=== PATIENT | male | born 1955 | race Caucasian/White ===

== ENCOUNTER → 2016-11-14 | Outpatient (CLI) | payer OTHER ==
[~2016-11-14] MED LIST: ALBU17IN INH; CIPR-303 PO; LISI-542 PO; PERC5TAB6 PO; STOO100C PO; TYLE325T5 PO
== END ==
LOC: M SMT 08:51
PROVIDERS: ATTEND Urology
DX: C61 Malignant neoplasm of prostate (principal)

== ENCOUNTER → 2016-11-14 | Outpatient (CLI) | payer OTHER ==
[2016-11-14 13:39] LABS: MEAN CORPUSCULAR HEMOGLOBIN 32.7 pg (27.0-33.0); MEAN CORPUSCULAR HGB CONC 32.9 g/dl (32.0-36.5); MEAN CORPUSCULAR VOLUME 99.2 fl (80.0-96.0); RED CELL DISTRIBUTION WIDTH 13.6 % (11.5-14.5); WHITE BLOOD COUNT 6.1 K/mm3 (4.0-10.0)
[2016-11-14 14:08] LABS: ALBUMIN 3.7 GM/DL (3.2-5.2); ALBUMIN/GLOBULIN RATIO 1.23 (1.00-1.93); ALKALINE PHOSPHATASE 122 U/L (45-117); ALT/SGPT 26 U/L (12-78); ANION GAP 7 MEQ/L (8-16); AST/SGOT 20 U/L (15-37); BILIRUBIN,TOTAL 0.3 MG/DL (0.2-1.0); BLOOD UREA NITROGEN 14 MG/DL (7-18); CALCIUM LEVEL 9.2 MG/DL (8.8-10.2); CARBON DIOXIDE LEVEL 29 MEQ/L (21-32); CHLORIDE LEVEL 101 MEQ/L (98-107); CHOLESTEROL LEVEL 228 MG/DL (<200); CREATININE FOR GFR 0.92 MG/DL (0.70-1.30); GLOMERULAR FILTRATION RATE > 60.0 (>49); GLUCOSE, FASTING 153 MG/DL (80-110); POTASSIUM SERUM 4.7 MEQ/L (3.5-5.1); SODIUM LEVEL 137 MEQ/L (136-145); TOTAL PROTEIN 6.7 GM/DL (6.4-8.2); TRIGLYCERIDES LEVEL 90 MG/DL (<150)
== END ==
LOC: M SMT 08:25
PROVIDERS: ATTEND Physician Assistant
DX: F17.200 Nicotine dependence, unspecified, uncomplicated (principal); I10 Essential (primary) hypertension; E78.2 Mixed hyperlipidemia

== ENCOUNTER → 2017-01-25 | Outpatient (CLI) | payer OTHER | LOC: M RAD 09:33 | PROVIDERS: ATTEND Physician Assistant | DX: I73.9 Peripheral vascular disease, unspecified (principal) ==

== ENCOUNTER → 2017-02-27 | Outpatient (CLI) | payer OTHER | LOC: M SMT 08:08 | PROVIDERS: ATTEND Urology | DX: C61 Malignant neoplasm of prostate (principal) ==

== ENCOUNTER → 2017-03-10 | Outpatient (REF) | payer OTHER ==
[2017-03-10 16:09] LABS: MEAN CORPUSCULAR HEMOGLOBIN 33.7 pg (27.0-33.0); MEAN CORPUSCULAR HGB CONC 33.7 g/dl (32.0-36.5); MEAN CORPUSCULAR VOLUME 100.2 fl (80.0-96.0); RED CELL DISTRIBUTION WIDTH 12.5 % (11.5-14.5); WHITE BLOOD COUNT 5.6 K/mm3 (4.0-10.0)
[2017-03-10 16:19] LABS: ALBUMIN 3.9 GM/DL (3.2-5.2); ALBUMIN/GLOBULIN RATIO 1.15 (1.00-1.93); ALKALINE PHOSPHATASE 114 U/L (45-117); ALT/SGPT 28 U/L (12-78); ANION GAP 8 MEQ/L (8-16); AST/SGOT 20 U/L (15-37); BILIRUBIN,TOTAL 0.6 MG/DL (0.2-1.0); BLOOD UREA NITROGEN 18 MG/DL (7-18); CALCIUM LEVEL 9.5 MG/DL (8.8-10.2); CARBON DIOXIDE LEVEL 28 MEQ/L (21-32); CHLORIDE LEVEL 99 MEQ/L (98-107); CHOLESTEROL LEVEL 294 MG/DL (<200); CREATININE FOR GFR 1.13 MG/DL (0.70-1.30); GLOMERULAR FILTRATION RATE > 60.0 (>49); GLUCOSE, FASTING 183 MG/DL (80-110); POTASSIUM SERUM 4.9 MEQ/L (3.5-5.1); SODIUM LEVEL 135 MEQ/L (136-145); TOTAL PROTEIN 7.3 GM/DL (6.4-8.2); TRIGLYCERIDES LEVEL 105 MG/DL (<150)
== END ==
LOC: M SFHCLACO 15:34
PROVIDERS: ATTEND Physician Assistant
DX: J44.9 Chronic obstructive pulmonary disease, unspecified (principal); E11.9 Type 2 diabetes mellitus without complications

== ENCOUNTER → 2017-05-29 | Outpatient (CLI) | payer OTHER ==
[~2017-05-29] MED LIST changes: +PERC5TAB12 PO; -PERC5TAB6 PO
== END ==
LOC: M SMT 08:09
PROVIDERS: ATTEND Urology
DX: C61 Malignant neoplasm of prostate (principal)

== ENCOUNTER → 2019-01-08 | Outpatient (REF) | payer OTHER, SELFPAY ==
[2019-01-08 12:33] LABS: HEMATOCRIT 39.1 % (42.0-52.0); HEMOGLOBIN 13.2 g/dl (13.5-17.5); MEAN CORPUSCULAR HEMOGLOBIN 33.6 pg (27.0-33.0); MEAN CORPUSCULAR HGB CONC 33.8 g/dl (32.0-36.5); MEAN CORPUSCULAR VOLUME 99.5 fl (80.0-96.0); PLATELET COUNT, AUTOMATED 344 10^3/uL (150-450); RED BLOOD COUNT 3.93 10^6/uL (4.30-6.10); WHITE BLOOD COUNT 5.5 10^3/uL (4.0-10.0)
[2019-01-08 12:46] LABS: ALBUMIN 3.3 GM/DL (3.2-5.2); ALT/SGPT 19 U/L (12-78); BILIRUBIN,TOTAL 0.4 MG/DL (0.2-1.0); BLOOD UREA NITROGEN 14 MG/DL (7-18); CALCIUM LEVEL 8.9 MG/DL (8.8-10.2); CARBON DIOXIDE LEVEL 28 MEQ/L (21-32); CHLORIDE LEVEL 105 MEQ/L (98-107); GLOMERULAR FILTRATION RATE > 60.0 (>49); GLUCOSE, FASTING 301 MG/DL (70-100); POTASSIUM SERUM 4.9 MEQ/L (3.5-5.1); SODIUM LEVEL 139 MEQ/L (136-145); TOTAL PROTEIN 6.1 GM/DL (6.4-8.2)
[2019-01-08 14:56] LABS: HEMOGLOBIN A1c 8.3 %
== END ==
LOC: M SFHCADAM 08:39
PROVIDERS: ATTEND Family Medicine
DX: J44.9 Chronic obstructive pulmonary disease, unspecified (principal); E11.9 Type 2 diabetes mellitus without complications

== ENCOUNTER → 2019-10-11 | Outpatient (CLI) | payer MEDICARE ==
[~2019-10-11] MED LIST changes: +MM S100C PO; -STOO100C PO
--- NOTE | 2019-10-12 08:07 | REP ---
CAROTID ULTRASOUND: Real-time sonographic evaluation and duplex Doppler interrogation of the extracranial carotid vasculature performed. Moderate partially calcified plaquing is seen bilaterally in the carotid bulbs extending into the internal and external carotid arteries. Elevated peak systolic velocity is seen in the proximal right common carotid artery at 192 cm/s which could indicate a more proximal stenosis. There is no duplex Doppler sonographic evidence of hemodynamically significant stenosis in the internal carotid arteries. There is normal direction of flow in both vertebral arteries, although only minimal flow is seen in the right vertebral artery. RIGHT LEFT PSV ICA 119 cm/s 111 cm/s EDV ICA 36 cm/s 33 cm/s PSV CCA 192 cm/s 127 cm/s PSV ECA 126 cm/s 99 cm/s ICA/CCA ratio 0.62 0.87 IMPRESSION: Moderate plaquing and narrowing bilaterally in the carotid bulbs and internal carotid arteries. Elevated peak systolic velocity in the right common carotid artery may indicate a more proximal stenosis of that vessel. There is no evidence of significant stenosis of either internal carotid artery. Electronically Signed by Raulito Lomas MD 10/14/2019 04:17 P
== END ==
LOC: M RAD 14:06
PROVIDERS: ATTEND Family Medicine
DX: R09.89 Other specified symptoms and signs involving the circulatory and respiratory systems (principal); E11.9 Type 2 diabetes mellitus without complications

== ENCOUNTER → 2019-10-11 | Outpatient (CLI) | payer MEDICARE ==
[2019-10-11 15:46] LABS: HEMOGLOBIN A1c 8.8 %
[2019-10-11 15:55] LABS: ALBUMIN 3.4 GM/DL (3.2-5.2); ALT/SGPT 24 U/L (12-78); BILIRUBIN,TOTAL 0.5 MG/DL (0.2-1.0); BLOOD UREA NITROGEN 20 MG/DL (7-18); CALCIUM LEVEL 8.8 MG/DL (8.8-10.2); CARBON DIOXIDE LEVEL 29 MEQ/L (21-32); CHLORIDE LEVEL 105 MEQ/L (98-107); CHOLESTEROL LEVEL 216 MG/DL (<200); GLOMERULAR FILTRATION RATE > 60.0 (>49); GLUCOSE, FASTING 172 MG/DL (70-100); HDL CHOLESTEROL 72 MG/DL (>40); LDL CHOLESTEROL 87 MG/DL (<100); NON-HDL-C 144 MG/DL; POTASSIUM SERUM 4.7 MEQ/L (3.5-5.1); SODIUM LEVEL 139 MEQ/L (136-145); TOTAL PROTEIN 6.3 GM/DL (6.4-8.2); TRIGLYCERIDES LEVEL 284 MG/DL (<150)
== END ==
LOC: M LAB 14:55
PROVIDERS: ATTEND Family Medicine
DX: E11.9 Type 2 diabetes mellitus without complications (principal)

== ENCOUNTER → 2019-10-31 | Outpatient (REF) | payer MEDICARE ==
[2019-10-31 14:47] LABS: CREATININE, URINE 97.3 MG/DL; MALB URINE SIEMENS 15.5 MG/L; MAU/CREAT RATIO 15.9 MCG/MG (0.0-30.0)
== END ==
LOC: M SFHCADAM 09:20
PROVIDERS: ATTEND Family Medicine
DX: E11.9 Type 2 diabetes mellitus without complications (principal)
CPT/HCPCS: 82043; G0463

== ENCOUNTER → 2019-11-08 | Outpatient (CLI) | payer MEDICARE | LOC: M LAB 08:41 | PROVIDERS: ATTEND Nurse Practitioner Family | DX: C61 Malignant neoplasm of prostate (principal) ==

== ENCOUNTER → 2020-03-05 | Outpatient (REF) | payer MEDICARE ==
[~2020-03-05] MED LIST changes: +ASPI81TA26 PO; -LISI-542 PO; +LISI-898 PO; +METF10004 PO; +ROSU40TA4 PO
== END ==
LOC: M SFHCADAM 10:33
PROVIDERS: ATTEND Family Medicine
DX: E11.9 Type 2 diabetes mellitus without complications (principal)
CPT/HCPCS: 83036; G0463

== ENCOUNTER → 2020-04-09 | Outpatient (CLI) | payer MEDICARE ==
[~2020-04-09] MED LIST changes: -ASPI81TA26 PO; +LISI-542 PO; -LISI-898 PO; -METF10004 PO; -ROSU40TA4 PO
--- NOTE | 2020-04-10 04:58 | REP ---
Clinical: Symptoms related to atherosclerotic disease and intermittent claudication. Technique: Real time oglesby scale and color Doppler evaluation of the bilateral lower extremity arterial vasculature using linear high frequency transducer. Findings: Right lower extremity demonstrates significant partially calcified atheromatous plaquing including moderate stenosis to the common femoral artery and profunda artery. Decreased caliber to the proximal superficial femoral artery with slow flow to the level of occlusion at the mid superficial femoral artery extending to the popliteal artery with distal revascularization and downstream monophasic wave patterns. Left lower extremity demonstrates significant partially calcified atheromatous plaquing from the common femoral artery through the superficial femoral artery followed by moderate/significant stenosis at the popliteal artery. Left lower extremity demonstrates scattered triphasic and primarily biphasic wave patterns. Peak systolic velocities (cm/sec) RIGHT LEFT ADELE 0.47 0.93 Common femoral artery 142 197 Profunda femoris 257 209 SFA (proximal) 71 150 SFA (mid) occluded 124 SFA (distal) occluded 173 Popliteal artery occluded 84/226 MARY (prox.) 16 80 Tibioperoneal trunk 26 59 DIRECTOR OF PRODUCT MANAGEMENT (prox.) 59 74 DIRECTOR OF PRODUCT MANAGEMENT (distal) 39 74 MARY (distal) 26 86 Impression: Significant bilateral partially calcified atheromatous disease with areas of stenosis as described above and occlusion through the right superficial femoral artery. Electronically Signed by Lee Castillo MD 04/10/2020 04:51 A
== END ==
LOC: M RAD 14:04
PROVIDERS: ATTEND Physician Assistant
DX: I70.213 Atherosclerosis of native arteries of extremities with intermittent claudication, bilateral legs (principal); I77.1 Stricture of artery

== ENCOUNTER → 2020-05-05 | Outpatient (CLI) | payer MEDICARE ==
[~2020-05-05] MED LIST changes: +ASPI81TA26 PO; +ISOVUE-300 61% 50ML VIAL As Ordered ONE; +LIDOCAINE 1% MDV 20ML VIAL As Ordered ONE; +METF10004 PO; +MIDAZOLAM INJ 2MG/2ML VIAL (J2250 PER 1MG) As Ordered ONE; +ROSU40TA4 PO; +fentaNYL 100 MCG/2 ML INJECTION (J3010) As Ordered ONE
[2020-05-05 09:10] LABS: HEMATOCRIT 39.8 % (42.0-52.0); HEMOGLOBIN 13.4 g/dl (13.5-17.5); MEAN CORPUSCULAR HEMOGLOBIN 32.8 pg (27.0-33.0); MEAN CORPUSCULAR HGB CONC 33.7 g/dl (32.0-36.5); MEAN CORPUSCULAR VOLUME 97.3 fl (80.0-96.0); PLATELET COUNT, AUTOMATED 319 10^3/uL (150-450); RED BLOOD COUNT 4.09 10^6/uL (4.30-6.10); WHITE BLOOD COUNT 6.8 10^3/uL (4.0-10.0)
--- NOTE | 2020-05-05 10:41 | ROOPDOC ---
[facility] Report Of Operation Report of Operation DATE OF PROCEDURE: 05/05/20 PREPROCEDURE DIAGNOSES: Atherosclerosis of the lummi arteries with lifestyle limiting claudication right lower extremity POSTPROCEDURE DIAGNOSES: Same PROCEDURE: 1. Ultrasound-guided access left common femoral artery 2. Aortoiliofemoral arteriogram 3. Selection right common femoral artery and superficial femoral artery with right lower extremity runoff 4. Attempt to cross chronic total occlusion right superficial femoral artery, aborted 5. Completion arteriogram 6. Mynx closure left common femoral artery SURGEON: Nick Hunt MD ANESTHESIA: Local anesthesia 5 mL lidocaine. Moderate intravenous conscious sedation was supervised by Dr. Hunt. The patient was independently monitored by a registered nurse assigned to the Department of radiology using automated blood pressure, EKG, and pulse oximetry. The details sedation record is permanently stored in the hospital information system. The following is a brief sedation record: Start time 09:55, stop time 10:15, Versed 1 mg IV, fentanyl 50 g IV. CONTRAST: 20 mL Isovue-300 INDICATION FOR PROCEDURE: Mr. Smith is a very pleasant 64-year-old gentleman with atherosclerosis of the lummi arteries and right lower extremity lifestyle limiting short distance claudication. The patient's claudication has worsened over the past few weeks, and we discussed the options for an arteriogram with potential intervention. I suspect that the patient will need a right femoral to below-knee popliteal bypass based on his arterial ultrasound, but I would like to make sure he does not have any new arterial occlusions and make sure his below-knee popliteal artery is suitable for bypass prior to discussing surgery, and that he has in-line tibial outflow to support a bypass. Also, I discussed with the patient that despite him having a long occlusion of right the superficial femoral artery and proximal popliteal artery, we would still like to try to cross this with endovascular measures and possibly treat him with angioplasty and/or stenting. Risks benefits and alternatives to an arteriogram and potential intervention were explained to the patient needs agreeable to proceed. Informed consent was obtained. INTERPRETATION: 1. The aortoiliofemoral segments are mildly ectatic and calcified with plaque, but no flow-limiting stenoses are noted in the bilateral common iliac arteries, external iliac arteries, or hypogastric arteries. The distal aorta is also widely patent. 2. The right common femoral artery has some peripheral calcified plaque, but is widely patent with good flow into the profunda which provides majority of collaterals to the below-knee popliteal artery for reconstitution. The proximal SFA is patent, but is very diminutive in size with trickle flow that runs off through a large collateral through the thigh and around the knee to the below-kn ee popliteal artery. Below the knee, the patient has his main runoff through the posterior tibial and anterior tibial arteries which supply the flow to the distal foot. The peroneal artery is patent but diminutive and has limited flow compared to the other 2 vessels. 3. Attempts to cross the chronic total occlusion of the superficial femoral artery were aborted. Arteriograms during and after crossing confirmed that there was still good flow through the collateral to the below-knee aspect of the popliteal artery and no extravasation was noted. REPORT OF OPERATION: Patient was brought to the angiographic suite in stable condition and placed supine on the fluoroscopic table. His bilateral groins were prepped and draped in a sterile fashion. A timeout was performed. Sedation was administered without complication. Local anesthesia was administered to the skin and subcutaneous tissue over the left common femoral artery and a microneedle was used to access the artery under ultrasound guidance. A wire was passed thr ough this access and the needle was removed and a 4 Pakistani sheath was placed and flushed with saline. We then advanced a Glidewire and a flushing catheter into the distal aorta under fluoroscopic guidance. Aortoiliofemoral arteriograms were performed, please interpretation above. We then went up and over the bifurcation with a Glidewire and flushing catheter and selected the right common femoral artery and superficial femoral artery. Right lower extremity arteriograms and runoff were performed. We then attempted to cross through the chronic total occlusion in the right superficial femoral artery, but the Glidewire continued to select a large collateral vessel and would not stay within the true lumen to cross the occlusion. Despite our best efforts, we were unsuccessful at crossing this occlusion. We then exchange the sheath for a 5 Pakistani sheath and deployed a Mynx closure device in the left common femoral artery with good hemostasis. Pressure was held for 5 minutes and sterile dressings were applied. The patient was taken to recovery in stable condition. He tolerated the procedure and the sedation well. ESTIMATED BLOOD LOSS: Approximately 5 mL. COMPLICATIONS: None. PLAN: Okay for patient to resume home diet medications. We will see him back in a week to check his groin access site discuss options. I went over the results of the procedure with the patient today, and with his daughter, but we like to talk to him again in a week as he may not remember our conversation today due to sedation. What I spoke with the patient today, he indicated he would prefer to try a walking program before going ahead with the bypass surgery. Therefore, we will not order a saphenous vein mapping today. We can order this in the future if the patient decides he does want a femoral to below-knee popliteal bypass on the right. I think it's great that he like to try a walking program first. Since he quit smoking, his collateral circulation should get better with time with consistent exercise. We went over the details of a walking exercise program, and the patient is more than willing to try ambulation or other exercise for 30-60 minutes a day over the next 3 months. We will see him back at that time to discuss his progress and see if he feels better or if he would prefer to proceed with bypass. Based on imaging today, the patient does have a suitable below-knee popliteal artery for bypass and suitable in-line tibial outflow to support a bypass. The patient and his daughter are agreeable to this plan and all questions were answered. We appreciate the opportunity to participate in the care of this patient. NICK HUNT MD May 05, 2020 10:41
[2020-05-05 14:00] VITALS: BP 159/80
== END ==
LOC: M IRPRO 08:37
PROVIDERS: ATTEND Surgery Vascular Surgery
DX: I70.211 Atherosclerosis of native arteries of extremities with intermittent claudication, right leg (principal); I70.92 Chronic total occlusion of artery of the extremities; I65.23 Occlusion and stenosis of bilateral carotid arteries; E11.9 Type 2 diabetes mellitus without complications; F17.210 Nicotine dependence, cigarettes, uncomplicated; Z79.82 Long term (current) use of aspirin; Z79.84 Long term (current) use of oral hypoglycemic drugs; Z79.899 Other long term (current) drug therapy
CPT/HCPCS: 36247; 75710; 85027; 99152; C1760; C1769; C1887; C1894; G0269; J1644; J2250; J3010; Q9967

== ENCOUNTER → 2020-05-08 | Outpatient (REF) | payer MEDICARE ==
[~2020-05-08] MED LIST changes: -ISOVUE-300 61% 50ML VIAL As Ordered ONE; -LIDOCAINE 1% MDV 20ML VIAL As Ordered ONE; -MIDAZOLAM INJ 2MG/2ML VIAL (J2250 PER 1MG) As Ordered ONE; -fentaNYL 100 MCG/2 ML INJECTION (J3010) As Ordered ONE
== END ==
LOC: M SFHCADAM 10:48
PROVIDERS: ATTEND Nurse Practitioner Family
DX: C61 Malignant neoplasm of prostate (principal)

== ENCOUNTER → 2020-08-13 | Outpatient (CLI) | payer MEDICARE ==
--- NOTE | 2020-08-13 14:18 | REP ---
INDICATION: ART [place] ART OF EXT WITH IN DORCAS, SUSAN LEGS atherosclerosis. COMPARISON: Comparison study April 09, 2020.. TECHNIQUE: Bilateral lower extremity arterial Doppler ultrasound is performed. FINDINGS: Ankle brachial indices are measured 0.61 on the right and 1.07 on the left. Severe plaquing is seen in the arterial tree in the right leg and mild plaquing in the left leg. There is a mild, 1.5/1 velocity ratio stenosis in the right profunda origin. The right superficial femoral artery is occluded from its proximal segment. Monophasic waveforms are seen at and proximal to the proximal segment of the SFA on the right. On the left triphasic and biphasic waveforms are noted throughout the arterial tree. No high-grade stenosis is noted. Right lower extremity arterial Doppler velocity chart: Right DIET TECHNICIAN REGISTERED PSV 176/146 cm/S Profundal 217 Proximal SFA 110/occluded Mid SFA occluded Distal SFA occluded Popliteal revascularized 43 Proximal MARY 18/63 Tibial-peroneal trunk 24 Proximal AUTOMOTIVE QUALITY ENGINEER 44 Distal AUTOMOTIVE QUALITY ENGINEER 18 Distal MARY 16 Left lower extremity arterial Doppler velocity chart: Left DIET TECHNICIAN REGISTERED PSV 209/217 cm/S Profile in 181 Proximal SFA 177 Mid SFA 123 Distal SFA 100 Popliteal 93/68 Proximal MARY 106 Tibial-peroneal trunk 64 Proximal AUTOMOTIVE QUALITY ENGINEER 107 Distal AUTOMOTIVE QUALITY ENGINEER 67 Distal MARY 54 IMPRESSION: Extensive atherosclerotic plaquing on the right. Occlusion of the right SFA. <Electronically signed by Russell Otoole > 08/13/20 [id number]
== END ==
LOC: M RAD 12:44
PROVIDERS: ATTEND Physician Assistant
DX: I70.213 Atherosclerosis of native arteries of extremities with intermittent claudication, bilateral legs (principal)

== ENCOUNTER → 2020-09-30 | Outpatient (REF) | payer MEDICARE ==
[2020-09-30 13:37] LABS: HEMOGLOBIN A1c 7.9 %
== END ==
LOC: M SFHCADAM 08:49
PROVIDERS: ATTEND Family Medicine
DX: E11.9 Type 2 diabetes mellitus without complications (principal); Z23 Encounter for immunization
CPT/HCPCS: 83036; 90682; G0008; G0463

== ENCOUNTER → 2020-11-03 | Outpatient (CLI) | payer MEDICARE ==
[~2020-11-03] MED LIST changes: -LISI-542 PO; +LISI-898 PO
--- NOTE | 2020-11-03 08:45 | REP ---
INDICATION: CIGARETTE NICOTINE DEPENDENCE COMPARISON: None. TECHNIQUE: Axial noncontrast images from the thoracic inlet to the upper abdomen using low-dose lung screening technique (LDCT). FINDINGS: The bilateral lung bullock are well aerated and symmetric. No consolidation, suspicious nodule or mass lesion appreciated. No pleural effusion. No pneumothorax. Tracheobronchial tree is patent. Mediastinum demonstrates atherosclerotic changes to the thoracic aorta and coronary arteries without obvious cardiomegaly. IMPRESSION: Lung-RADS category 1. No suspicious nodules or mass lesions. Annual low-dose CT surveillance recommended. <Electronically signed by Lee Castillo > 11/03/20 [id number]
== END ==
LOC: M RAD 08:12
PROVIDERS: ATTEND Family Medicine
DX: Z12.2 Encounter for screening for malignant neoplasm of respiratory organs (principal); F17.218 Nicotine dependence, cigarettes, with other nicotine-induced disorders

== ENCOUNTER → 2020-11-04 | Outpatient (REF) | payer MEDICARE ==
[~2020-11-04] MED LIST changes: +LISI-542 PO; -LISI-898 PO
== END ==
LOC: M SFHCADAM 07:34
PROVIDERS: ATTEND Nurse Practitioner Family
DX: C61 Malignant neoplasm of prostate (principal)

== ENCOUNTER → 2021-01-08 | Outpatient (REF) | payer MEDICARE ==
[~2021-01-08] MED LIST changes: -LISI-542 PO; +LISI-898 PO
[2021-01-08 13:36] LABS: HEMOGLOBIN A1c 6.8 %
[2021-01-08 13:46] LABS: ALBUMIN 3.7 GM/DL (3.2-5.2); ALT/SGPT 23 U/L (12-78); BILIRUBIN,TOTAL 0.4 MG/DL (0.2-1.0); BLOOD UREA NITROGEN 17 MG/DL (7-18); CALCIUM LEVEL 9.1 MG/DL (8.8-10.2); CARBON DIOXIDE LEVEL 28 MEQ/L (21-32); CHLORIDE LEVEL 105 MEQ/L (98-107); CREATININE FOR GFR 0.95 MG/DL (0.70-1.30); GLOMERULAR FILTRATION RATE > 60.0 (>49); GLUCOSE, FASTING 156 MG/DL (70-100); POTASSIUM SERUM 4.8 MEQ/L (3.5-5.1); SODIUM LEVEL 136 MEQ/L (136-145); TOTAL PROTEIN 6.5 GM/DL (6.4-8.2)
== END ==
LOC: M SFHCADAM 08:50
PROVIDERS: ATTEND Family Medicine
DX: E11.9 Type 2 diabetes mellitus without complications (principal)

== ENCOUNTER → 2021-04-08 | Outpatient (REF) | payer MEDICARE ==
[2021-04-08 18:05] LABS: ALBUMIN 3.5 GM/DL (3.2-5.2); ALT/SGPT 20 U/L (12-78); AMYLASE 135 U/L (25-115); BILIRUBIN,TOTAL 0.3 MG/DL (0.2-1.0); BLOOD UREA NITROGEN 17 MG/DL (7-18); CALCIUM LEVEL 8.9 MG/DL (8.8-10.2); CARBON DIOXIDE LEVEL 28 MEQ/L (21-32); CHLORIDE LEVEL 101 MEQ/L (98-107); CREATININE FOR GFR 0.94 MG/DL (0.70-1.30); GLOMERULAR FILTRATION RATE > 60.0 (>49); GLUCOSE, FASTING 160 MG/DL (70-100); LIPASE 220 U/L (73-393); POTASSIUM SERUM 4.6 MEQ/L (3.5-5.1); SODIUM LEVEL 134 MEQ/L (136-145); TOTAL PROTEIN 6.3 GM/DL (6.4-8.2)
[2021-04-08 18:08] LABS: HEMOGLOBIN A1c 7.3 %
== END ==
LOC: M SFHCADAM 15:14
PROVIDERS: ATTEND Family Medicine
DX: R10.13 Epigastric pain (principal); E11.9 Type 2 diabetes mellitus without complications

== ENCOUNTER → 2021-04-14 | Outpatient (REF) | payer MEDICARE | LOC: M SFHCADAM 11:59 | PROVIDERS: ATTEND Nurse Practitioner Family | DX: C61 Malignant neoplasm of prostate (principal) | CPT/HCPCS: 84153; G0463 ==

== ENCOUNTER → 2021-04-28 | Outpatient (REF) | payer MEDICARE ==
[2021-04-28 17:53] LABS: ALBUMIN 3.2 GM/DL (3.2-5.2); ALT/SGPT 17 U/L (12-78); AMYLASE 115 U/L (25-115); BILIRUBIN,TOTAL 0.3 MG/DL (0.2-1.0); BLOOD UREA NITROGEN 17 MG/DL (7-18); CALCIUM LEVEL 9.4 MG/DL (8.8-10.2); CARBON DIOXIDE LEVEL 27 MEQ/L (21-32); CHLORIDE LEVEL 109 MEQ/L (98-107); CREATININE FOR GFR 0.87 MG/DL (0.70-1.30); GLOMERULAR FILTRATION RATE > 60.0 (>49); GLUCOSE, FASTING 140 MG/DL (70-100); POTASSIUM SERUM 4.6 MEQ/L (3.5-5.1); SODIUM LEVEL 141 MEQ/L (136-145); TOTAL PROTEIN 6.1 GM/DL (6.4-8.2)
== END ==
LOC: M SFHCADAM 15:18
PROVIDERS: ATTEND Family Medicine
DX: R10.13 Epigastric pain (principal)

== ENCOUNTER → 2021-05-04 | Outpatient (CLI) | payer MEDICARE ==
[~2021-05-04] MED LIST changes: +GASTROGRAFIN SOLUTION 30ML (Q9963) As Ordered ONE; +ISOVUE-370 76% 100ML VIAL As Ordered ONE
--- NOTE | 2021-05-04 15:34 | REP ---
INDICATION: EPIGASTRIC PAIN. COMPARISON: CT the pelvis 05/30/2016 TECHNIQUE: Standard helical technique after the intravenous administration of 100 cc Isovue 370 and oral bowel preparatory contrast administration FINDINGS: The lung bases are clear. The liver, gallbladder, spleen, pancreas, adrenal glands, and kidneys are within normal limits. The abdominal aorta and para-aortic regions are within normal limits. There is no mass or adenopathy. There is no free fluid or free air. The bowel loops and the mesenteries are within normal limits. Bone window technique throughout the examination shows the osseous structures to be within normal limits. There is a partially imaged exostosis arising from the 10th thoracic vertebral body on the left. IMPRESSION: CT findings are within normal limits as described above. <Electronically signed by Brian Gallegos > 05/04/21 [id number]
== END ==
LOC: M RAD 13:22
PROVIDERS: ATTEND Family Medicine
DX: R10.13 Epigastric pain (principal)
CPT/HCPCS: 74177; Q9963; Q9967

== ENCOUNTER → 2021-06-15 | Outpatient (REF) | payer MEDICARE ==
[~2021-06-15] MED LIST changes: -GASTROGRAFIN SOLUTION 30ML (Q9963) As Ordered ONE; -ISOVUE-370 76% 100ML VIAL As Ordered ONE
[2021-06-15 12:48] LABS: HEMOGLOBIN A1c 7.9 %
[2021-06-15 13:09] LABS: ALBUMIN 3.6 GM/DL (3.2-5.2); ALT/SGPT 31 U/L (12-78); BILIRUBIN,TOTAL 0.4 MG/DL (0.2-1.0); BLOOD UREA NITROGEN 14 MG/DL (7-18); CALCIUM LEVEL 9.4 MG/DL (8.8-10.2); CARBON DIOXIDE LEVEL 30 MEQ/L (21-32); CHLORIDE LEVEL 104 MEQ/L (98-107); CREATININE FOR GFR 0.84 MG/DL (0.70-1.30); GLOMERULAR FILTRATION RATE > 60.0 (>49); GLUCOSE, FASTING 144 MG/DL (70-100); POTASSIUM SERUM 5.2 MEQ/L (3.5-5.1); SODIUM LEVEL 135 MEQ/L (136-145); TOTAL PROTEIN 6.2 GM/DL (6.4-8.2)
== END ==
LOC: M SFHCADAM 11:23
PROVIDERS: ATTEND Family Medicine
DX: E11.9 Type 2 diabetes mellitus without complications (principal)

== ENCOUNTER → 2021-08-09 | Outpatient (REF) | payer MEDICARE | LOC: M SFHCADAM 09:40 | PROVIDERS: ATTEND Family Medicine | DX: Z20.822 Contact with and (suspected) exposure to COVID-19 (principal) | CPT/HCPCS: 87426; G0463; U0003 ==

== ENCOUNTER → 2021-08-16 | Outpatient (CLI) | payer MEDICARE ==
--- NOTE | 2021-08-16 09:22 | REP ---
INDICATION: UPPER ABD PAIN COMPARISON: None. TECHNIQUE: Limited real time oglesby scale ultrasound examination using linear high-frequency transducer. FINDINGS: Directed ultrasound examination along the midline anterior abdominal wall demonstrates a small periumbilical fat containing hernia. The peritoneal defect measures roughly 5.7 mm diameter and remains stable on Valsalva. IMPRESSION: Small fat containing periumbilical hernia. <Electronically signed by Lee Castillo > 08/16/21 0918
== END ==
LOC: M RAD 08:44
PROVIDERS: ATTEND Physician Assistant Medical
DX: K42.9 Umbilical hernia without obstruction or gangrene (principal); R10.10 Upper abdominal pain, unspecified

== ENCOUNTER → 2021-10-19 | Outpatient (REF) | payer MEDICARE ==
[2021-10-19 17:52] LABS: HEMATOCRIT 36.9 % (42.0-52.0); HEMOGLOBIN 12.4 g/dl (13.5-17.5); MEAN CORPUSCULAR HEMOGLOBIN 33.1 pg (27.0-33.0); MEAN CORPUSCULAR HGB CONC 33.6 g/dl (32.0-36.5); MEAN CORPUSCULAR VOLUME 98.4 fl (80.0-96.0); PLATELET COUNT, AUTOMATED 296 10^3/uL (150-450); RED BLOOD COUNT 3.75 10^6/uL (4.30-6.10); WHITE BLOOD COUNT 7.2 10^3/uL (4.0-10.0)
[2021-10-19 18:12] LABS: ALBUMIN 3.1 GM/DL (3.2-5.2); ALT/SGPT 24 U/L (12-78); BILIRUBIN,TOTAL 0.5 MG/DL (0.2-1.0); BLOOD UREA NITROGEN 15 MG/DL (7-18); CALCIUM LEVEL 8.4 MG/DL (8.8-10.2); CARBON DIOXIDE LEVEL 26 MEQ/L (21-32); CHLORIDE LEVEL 104 MEQ/L (98-107); CHOLESTEROL LEVEL 128 MG/DL (<200); CHOLESTEROL RISK RATIO 2.509 (<5); CREATININE FOR GFR 0.98 MG/DL (0.70-1.30); GLOMERULAR FILTRATION RATE > 60.0 (>49); GLUCOSE, FASTING 295 MG/DL (70-100); HDL CHOLESTEROL 51 MG/DL (>40); IRON (FE) 94 UG/DL (65-175); LDL CHOLESTEROL 49 MG/DL (<100); NON-HDL-C 77 MG/DL; PLATELET ESTIMATE NORMAL (NORMAL); POTASSIUM SERUM 4.2 MEQ/L (3.5-5.1); SODIUM LEVEL 135 MEQ/L (136-145); TOTAL PROTEIN 5.8 GM/DL (6.4-8.2); TRIGLYCERIDES LEVEL 139 MG/DL (<150)
[2021-10-19 18:27] LABS: ATYPICAL LYMPH 1 % (0-5); BASOPHILS 1 % (0-1); EOSINOPHILS 7 % (0-3); LYMPHOCYTES 40 % (16-44); MONOCYTES 3 % (0-5); NEUTROPHILS 48 % (28-66)
[2021-10-19 18:29] LABS: HEMOGLOBIN A1c 12.5 %
== END ==
LOC: M SFHCADAM 13:00
PROVIDERS: ATTEND Family Medicine
DX: E11.9 Type 2 diabetes mellitus without complications (principal); E78.2 Mixed hyperlipidemia; R10.13 Epigastric pain

== ENCOUNTER → 2021-11-15 | Outpatient (CLI) | payer MEDICARE ==
[~2021-11-15] MED LIST changes: +GLIP5TAB8 PO; -LISI-898 PO; +LISI5TAB11 PO; +PANT40TA29 PO
== END ==
LOC: M LABSMTC 10:57
PROVIDERS: ATTEND Anesthesiology
DX: Z01.812 Encounter for preprocedural laboratory examination (principal); Z20.822 Contact with and (suspected) exposure to COVID-19

== ENCOUNTER 2021-11-19 06:43 | Day surgery (SDC) | payer MEDICARE ==
[~2021-11-19] VITALS: Ht 172.7 cm; Wt 64.0 kg
[~2021-11-19 06:43] MED LIST changes: +NS 1,000 ML IV ONE
[2021-11-19] MEDS ORDERED: propofoL 200 MG/20 ML VIAL As Ordered ONE ×3 (06:53→07:41)
[2021-11-19] MEDS ORDERED: LIDOCAINE 2% 100MG/5ML SDV (FOR ANES.) As Ordered ONE (07:04)
[2021-11-19] MEDS ORDERED: GLYCOPYRROLATE INJ 0.2 MG/ML 2 ML VIAL As Ordered ONE (07:04)
[2021-11-19 08:34] VITALS: BP 117/69
== END 2021-11-19 08:37 | disposition home or self-care (01) ==
LOC: M OPP 06:43
PROVIDERS: ATTEND Internal Medicine Gastroenterology
DX: K22.89 Other specified disease of esophagus (principal); R12 Heartburn; R11.10 Vomiting, unspecified; Z80.41 Family history of malignant neoplasm of ovary; Z80.3 Family history of malignant neoplasm of breast

== ENCOUNTER → 2022-01-12 | Outpatient (CLI) | payer MEDICARE ==
[~2022-01-12] MED LIST changes: -NS 1,000 ML IV ONE
== END ==
LOC: M RAD 07:35
PROVIDERS: ATTEND Family Medicine
DX: Z12.2 Encounter for screening for malignant neoplasm of respiratory organs (principal); Z87.891 Personal history of nicotine dependence

== ENCOUNTER → 2022-03-31 | Outpatient (REF) | payer MEDICARE ==
[2022-03-31 17:12] LABS: ALBUMIN 3.1 GM/DL (3.2-5.2); ALT/SGPT 32 U/L (12-78); BILIRUBIN,TOTAL 0.4 MG/DL (0.2-1.0); BLOOD UREA NITROGEN 25 MG/DL (7-18); CALCIUM LEVEL 8.9 MG/DL (8.8-10.2); CARBON DIOXIDE LEVEL 30 MEQ/L (21-32); CHLORIDE LEVEL 100 MEQ/L (98-107); CREATININE FOR GFR 1.07 MG/DL (0.70-1.30); FREE T4 1.15 NG/DL (0.76-1.46); GLOMERULAR FILTRATION RATE > 60.0 (>49); GLUCOSE, FASTING 350 MG/DL (70-100); POTASSIUM SERUM 5.2 MEQ/L (3.5-5.1); SODIUM LEVEL 133 MEQ/L (136-145); TOTAL PROTEIN 6.2 GM/DL (6.4-8.2)
[2022-03-31 19:42] LABS: HEMOGLOBIN A1c 12.8 %
== END ==
LOC: M SFHCADAM 14:56
PROVIDERS: ATTEND Family Medicine
DX: E11.9 Type 2 diabetes mellitus without complications (principal)

== ENCOUNTER → 2022-05-20 | Outpatient (REF) | payer MEDICARE | LOC: M SFHCADAM 09:19 | PROVIDERS: ATTEND Family Medicine | DX: Z12.5 Encounter for screening for malignant neoplasm of prostate (principal) ==

== ENCOUNTER 2022-07-12 08:59 | Emergency (ER) | payer MEDICARE ==
[~2022-07-12] VITALS: Ht 170.2 cm; Wt 62.7 kg
[2022-07-12] MEDS ORDERED: SILVER NITRATE APPLICATOR (1 = QTY 10) TOP ONE (12:20)
[2022-07-12] MEDS ORDERED: LIDOCAINE 1% MDV 20ML VIAL SC ONE (12:20)
[2022-07-12] MEDS ORDERED: KETOROLAC TROMETHAMINE 10 MG TAB PO ONE (13:15)
[2022-07-12] MEDS ORDERED: BOOSTRIX/ADACEL VACCINE (DIPHTH/PERTUSS/ACELL/TETANUS) 0.5ML SYR IM ONE (13:15)
[2022-07-12] MEDS ORDERED: CEPH500C PO (13:15)
[2022-07-12 13:32] VITALS: BP 184/76
== END 2022-07-12 13:34 | disposition home or self-care (01) ==
LOC: M ED 08:59
DX: S61.012A Laceration without foreign body of left thumb without damage to nail, initial encounter (principal); W26.0XXA Contact with knife, initial encounter; Z23 Encounter for immunization

== ENCOUNTER → 2022-11-30 | Outpatient (REF) | payer MEDICARE ==
[~2022-11-30] MED LIST changes: +CEPH500C PO
[2022-11-30 18:16] LABS: ALBUMIN 3.6 G/DL (3.2-5.2); ALKALINE PHOSPHATASE 78 U/L (46-116); ALT/SGPT 25 U/L (7.0-40); AST/SGOT 29 U/L (<34); BILIRUBIN,TOTAL 0.5 MG/DL (0.3-1.2); BLOOD UREA NITROGEN 13 MG/DL (9-23); CALCIUM LEVEL 8.8 MG/DL (8.3-10.6); CARBON DIOXIDE LEVEL 25 MMOL/L (20-31); CHLORIDE LEVEL 101 MMOL/L (98-107); CHOLESTEROL LEVEL 129 MG/DL (<200); CHOLESTEROL RISK RATIO 2.05 (<5); CREATININE FOR GFR 0.84 MG/DL (0.70-1.30); GLOMERULAR FILTRATION RATE > 60.0 (>49); GLUCOSE, FASTING 264 MG/DL (74-106); HDL CHOLESTEROL 62.8 MG/DL (>40); LDL CHOLESTEROL 44.4 MG/DL (<100); NON-HDL-C 66 MG/DL; POTASSIUM SERUM 4.8 MMOL/L (3.5-5.1); SODIUM LEVEL 130 MMOL/L (136-145); TOTAL PROTEIN 5.9 G/DL (5.7-8.2); TRIGLYCERIDES LEVEL 109 MG/DL (<150)
[2022-11-30 18:22] LABS: HEMOGLOBIN A1c 6.8 % (4.0-6.0)
== END ==
LOC: M SFHCADAM 14:13
PROVIDERS: ATTEND Family Medicine
DX: E11.9 Type 2 diabetes mellitus without complications (principal)

== ENCOUNTER → 2023-03-06 | Outpatient (REF) | payer MEDICARE ==
[2023-03-06 15:57] LABS: ALBUMIN 3.7 G/DL (3.2-5.2); ALKALINE PHOSPHATASE 90 U/L (46-116); ALT/SGPT 23 U/L (7.0-40); AST/SGOT 23 U/L (<34); BILIRUBIN,TOTAL 0.6 MG/DL (0.3-1.2); BLOOD UREA NITROGEN 17 MG/DL (9-23); CALCIUM LEVEL 9.3 MG/DL (8.3-10.6); CARBON DIOXIDE LEVEL 30 MMOL/L (20-31); CHLORIDE LEVEL 101 MMOL/L (98-107); CREATININE FOR GFR 0.84 MG/DL (0.70-1.30); GLOMERULAR FILTRATION RATE > 60.0 (>49); GLUCOSE, FASTING 221 MG/DL (74-106); POTASSIUM SERUM 4.7 MMOL/L (3.5-5.1); SODIUM LEVEL 135 MMOL/L (136-145); TOTAL PROTEIN 6.5 G/DL (5.7-8.2)
[2023-03-06 17:25] LABS: HEMOGLOBIN A1c 7.2 % (4.0-6.0)
== END ==
LOC: M SFHCADAM 10:02
PROVIDERS: ATTEND Family Medicine
DX: E11.9 Type 2 diabetes mellitus without complications (principal)

== ENCOUNTER → 2023-03-31 | Outpatient (CLI) | payer MEDICARE | LOC: M RAD 14:01 | PROVIDERS: ATTEND Family Medicine | DX: H53.2 Diplopia (principal) ==

== ENCOUNTER → 2023-05-08 | Outpatient (REF) | payer MEDICARE ==
[2023-05-08 14:05] LABS: ALBUMIN 3.6 G/DL (3.2-5.2); ALKALINE PHOSPHATASE 75 U/L (46-116); ALT/SGPT 21 U/L (7.0-40); AST/SGOT 19 U/L (<34); BILIRUBIN,TOTAL 0.7 MG/DL (0.3-1.2); BLOOD UREA NITROGEN 15 MG/DL (9-23); CALCIUM LEVEL 10.1 MG/DL (8.3-10.6); CARBON DIOXIDE LEVEL 28 MMOL/L (20-31); CHLORIDE LEVEL 105 MMOL/L (98-107); CREATININE FOR GFR 0.86 MG/DL (0.70-1.30); GLOMERULAR FILTRATION RATE > 60.0 (>49); GLUCOSE, FASTING 115 MG/DL (74-106); POTASSIUM SERUM 4.8 MMOL/L (3.5-5.1); SODIUM LEVEL 136 MMOL/L (136-145); TOTAL PROTEIN 6.3 G/DL (5.7-8.2)
== END ==
LOC: M SFHCADAM 09:06
PROVIDERS: ATTEND Family Medicine
DX: E11.9 Type 2 diabetes mellitus without complications (principal); C61 Malignant neoplasm of prostate

== ENCOUNTER → 2023-06-16 | Outpatient (CLI) | payer MEDICARE | LOC: M RAD 07:47 | PROVIDERS: ATTEND Family Medicine | DX: Z12.2 Encounter for screening for malignant neoplasm of respiratory organs (principal); F17.218 Nicotine dependence, cigarettes, with other nicotine-induced disorders ==

== ENCOUNTER → 2023-09-04 | Outpatient (REF) | payer MEDICARE ==
[~2023-09-04] MED LIST changes: +GLIP5TAB17 PO; -GLIP5TAB8 PO
[2023-09-04 13:39] LABS: ALBUMIN 3.6 G/DL (3.2-5.2); ALKALINE PHOSPHATASE 69 U/L (46-116); ALT/SGPT 19 U/L (7.0-40); AST/SGOT 22 U/L (<34); BILIRUBIN,TOTAL 0.7 MG/DL (0.3-1.2); BLOOD UREA NITROGEN 11 MG/DL (9-23); CALCIUM LEVEL 9.1 MG/DL (8.3-10.6); CARBON DIOXIDE LEVEL 28 MMOL/L (20-31); CHLORIDE LEVEL 107 MMOL/L (98-107); CREATININE FOR GFR 0.83 MG/DL (0.70-1.30); GLOMERULAR FILTRATION RATE > 60.0 (>49); GLUCOSE, FASTING 98 MG/DL (74-106); POTASSIUM SERUM 4.7 MMOL/L (3.5-5.1); SODIUM LEVEL 142 MMOL/L (136-145); TOTAL PROTEIN 6.1 G/DL (5.7-8.2)
== END ==
LOC: M SFHCADAM 08:08
PROVIDERS: ATTEND Family Medicine
DX: E11.9 Type 2 diabetes mellitus without complications (principal)

== ENCOUNTER → 2023-10-02 | Outpatient (CLI) | payer MEDICARE | LOC: M SOG 07:52 | PROVIDERS: ATTEND Orthopaedic Surgery | DX: M25.511 Pain in right shoulder (principal) ==

== ENCOUNTER → 2023-11-03 | Outpatient (CLI) | payer MEDICARE | LOC: M RAD 10:53 | PROVIDERS: ATTEND Physician Assistant | DX: M79.89 Other specified soft tissue disorders (principal) ==

== ENCOUNTER → 2024-01-18 | Outpatient (REF) | payer MEDICARE ==
[2024-01-18 13:58] LABS: HEMOGLOBIN A1c 7.2 % (4.0-6.0)
[2024-01-18 14:12] LABS: ALBUMIN 3.7 G/DL (3.2-5.2); ALKALINE PHOSPHATASE 72 U/L (46-116); ALT/SGPT 38 U/L (7.0-40); AST/SGOT 27 U/L (<34); BILIRUBIN,TOTAL 0.7 MG/DL (0.3-1.2); BLOOD UREA NITROGEN 16 MG/DL (9-23); CALCIUM LEVEL 9.5 MG/DL (8.3-10.6); CARBON DIOXIDE LEVEL 28 MMOL/L (20-31); CHLORIDE LEVEL 105 MMOL/L (98-107); CREATININE FOR GFR 0.97 MG/DL (0.70-1.30); GLOMERULAR FILTRATION RATE > 60.0 (>49); GLUCOSE, FASTING 124 MG/DL (74-106); POTASSIUM SERUM 4.9 MMOL/L (3.5-5.1); SODIUM LEVEL 137 MMOL/L (136-145); TOTAL PROTEIN 6.3 G/DL (5.7-8.2)
== END ==
LOC: M SFHCADAM 08:31
PROVIDERS: ATTEND Family Medicine
DX: E11.9 Type 2 diabetes mellitus without complications (principal)

== ENCOUNTER → 2024-02-08 | Outpatient (CLI) | payer MEDICARE | LOC: M PLAIMG 07:50 | PROVIDERS: ATTEND Family Medicine | DX: R01.1 Cardiac murmur, unspecified (principal) ==

== ENCOUNTER → 2024-02-20 | Outpatient (REF) | payer MEDICARE | LOC: M SFHCDERM 18:21 | PROVIDERS: ATTEND Nurse Practitioner Family | DX: D36.17 Benign neoplasm of peripheral nerves and autonomic nervous system of trunk, unspecified (principal); L57.0 Actinic keratosis ==

== ENCOUNTER → 2024-04-05 | Outpatient (REF) | payer MEDICARE ==
[~2024-04-05] MED LIST changes: -ROSU40TA4 PO; +ROSU40TA63 PO
== END ==
LOC: M SFHCDERM 17:41
PROVIDERS: ATTEND Physician Assistant
DX: L57.8 Other skin changes due to chronic exposure to nonionizing radiation (principal)

== ENCOUNTER → 2024-04-25 | Outpatient (REF) | payer MEDICARE ==
[2024-04-25 19:46] LABS: ALBUMIN 3.5 G/DL (3.2-5.2); ALKALINE PHOSPHATASE 78 U/L (46-116); ALT/SGPT 18 U/L (7.0-40); AST/SGOT 14 U/L (<34); BILIRUBIN,TOTAL 0.4 MG/DL (0.3-1.2); BLOOD UREA NITROGEN 17 MG/DL (9-23); CALCIUM LEVEL 9.3 MG/DL (8.3-10.6); CARBON DIOXIDE LEVEL 27 MMOL/L (20-31); CHLORIDE LEVEL 105 MMOL/L (98-107); CREATININE FOR GFR 0.87 MG/DL (0.70-1.30); GLOMERULAR FILTRATION RATE > 60.0 (>49); GLUCOSE, FASTING 107 MG/DL (74-106); POTASSIUM SERUM 4.8 MMOL/L (3.5-5.1); SODIUM LEVEL 136 MMOL/L (136-145); TOTAL PROTEIN 5.4 G/DL (5.7-8.2)
[2024-04-25 20:08] LABS: HEMOGLOBIN A1c 6.9 % (4.0-6.0)
== END ==
LOC: M SFHCADAM 11:15
PROVIDERS: ATTEND Family Medicine
DX: E11.9 Type 2 diabetes mellitus without complications (principal); C61 Malignant neoplasm of prostate

== ENCOUNTER → 2024-06-19 | Outpatient (REF) | payer MEDICARE | LOC: M SFHCADAM 17:37 | PROVIDERS: ATTEND Family Medicine | DX: E11.9 Type 2 diabetes mellitus without complications (principal) ==

== ENCOUNTER → 2024-06-20 | Outpatient (CLI) | payer MEDICARE | LOC: M ADAMS 09:19 | PROVIDERS: ATTEND Family Medicine | DX: M47.816 Spondylosis without myelopathy or radiculopathy, lumbar region (principal); M54.50 Low back pain, unspecified ==

== ENCOUNTER → 2024-09-23 | Outpatient (CLI) | payer MEDICARE ==
[~2024-09-23] MED LIST changes: -ROSU40TA63 PO; +ROSU40TA81 PO
[2024-09-23 19:02] LABS: ALBUMIN 3.6 G/DL (3.2-5.2); ALKALINE PHOSPHATASE 97 U/L (40-129); ALT/SGPT 21 U/L (7.0-40); AST/SGOT 15 U/L (<34); BILIRUBIN,TOTAL 0.3 MG/DL (0.3-1.2); BLOOD UREA NITROGEN 20 MG/DL (9-23); CALCIUM LEVEL 9.3 MG/DL (8.3-10.6); CARBON DIOXIDE LEVEL 28 MMOL/L (20-31); CHLORIDE LEVEL 107 MMOL/L (98-107); GLOMERULAR FILTRATION RATE > 60.0 (>42); GLUCOSE, FASTING 116 MG/DL (74-106); POTASSIUM SERUM 5.2 MMOL/L (3.5-5.1); SODIUM LEVEL 137 MMOL/L (136-145); TOTAL PROTEIN 6.3 G/DL (5.7-8.2)
[2024-09-23 19:36] LABS: HEMOGLOBIN A1c 7.5 % (4.0-6.0)
== END ==
LOC: M PLALAB 13:45
PROVIDERS: ATTEND Family Medicine
DX: E11.9 Type 2 diabetes mellitus without complications (principal)

== ENCOUNTER → 2024-10-21 | Outpatient (CLI) | payer MEDICARE | LOC: M RAD 06:30 | PROVIDERS: ATTEND Family Medicine | DX: Z12.2 Encounter for screening for malignant neoplasm of respiratory organs (principal); F17.210 Nicotine dependence, cigarettes, uncomplicated; R91.1 Solitary pulmonary nodule ==

== ENCOUNTER → 2024-12-31 | Outpatient (REF) | payer MEDICARE ==
[2024-12-31 15:34] LABS: ALBUMIN 3.7 G/DL (3.2-5.2); ALKALINE PHOSPHATASE 78 U/L (40-129); ALT/SGPT 31 U/L (7.0-40); AST/SGOT 29 U/L (<34); BILIRUBIN,TOTAL 1.1 MG/DL (0.3-1.2); BLOOD UREA NITROGEN 29 MG/DL (9-23); CALCIUM LEVEL 9.2 MG/DL (8.3-10.6); CARBON DIOXIDE LEVEL 27 MMOL/L (20-31); CHLORIDE LEVEL 105 MMOL/L (98-107); CREATININE FOR GFR 1.17 MG/DL (0.70-1.30); GLOMERULAR FILTRATION RATE > 60.0 (>42); GLUCOSE, FASTING 193 MG/DL (74-106); POTASSIUM SERUM 4.4 MMOL/L (3.5-5.1); SODIUM LEVEL 137 MMOL/L (136-145); TOTAL PROTEIN 6.8 G/DL (5.7-8.2)
[2024-12-31 17:47] LABS: HEMOGLOBIN A1c 7.5 % (4.0-6.0)
== END ==
LOC: M SFHCADAM 13:08
PROVIDERS: ATTEND Family Medicine
DX: E11.9 Type 2 diabetes mellitus without complications (principal)

== ENCOUNTER → 2025-05-26 | Outpatient (CLI) | payer MEDICARE ==
[~2025-05-26] MED LIST changes: +ISOVUE-370 76% 100 ML VIAL As Ordered ONE
== END ==
LOC: M RAD 14:48
PROVIDERS: ATTEND Family Medicine
DX: J84.10 Pulmonary fibrosis, unspecified (principal); J43.2 Centrilobular emphysema; I25.10 Atherosclerotic heart disease of native coronary artery without angina pectoris
CPT/HCPCS: 71260; Q9967

== ENCOUNTER → 2025-07-11 | Outpatient (CLI) | payer MEDICARE ==
[~2025-07-11] MED LIST changes: -ISOVUE-370 76% 100 ML VIAL As Ordered ONE
[2025-07-11 11:49] LABS: BASO # 0.1 10^3/uL (0.0-0.2); BASO % 1.4 % (0.0-1.0); EOS # 0.2 10^3/uL (0.0-0.5); EOS % 2.2 % (0.0-3.0); LYMPH # 1.3 10^3/uL (1.5-5.0); LYMPH % 18.4 % (24.0-44.0); MONO # 0.6 10^3/uL (0.0-0.8); MONO % 7.7 % (2.0-8.0); NEUTROPHILS # 5.0 10^3/uL (1.5-8.5); NEUTROPHILS % 70.2 % (36.0-66.0); PLATELET COUNT, AUTOMATED 338 10^3/uL (150-450)
[2025-07-11 11:55] LABS: CHOLESTEROL LEVEL 153.0 MG/DL (<200); CHOLESTEROL RISK RATIO 1.83 (<5); LDL CHOLESTEROL 50.0 MG/DL (<100); NON-HDL-C 69.8 MG/DL; TRIGLYCERIDES LEVEL 99.0 MG/DL (<150)
== END ==
LOC: M PLALAB 08:12
PROVIDERS: ATTEND Family Medicine
DX: Z00.00 Encounter for general adult medical examination without abnormal findings (principal); E11.9 Type 2 diabetes mellitus without complications

== ENCOUNTER → 2025-07-14 | Outpatient (REF) | payer MEDICARE ==
[2025-07-14 14:29] LABS: ESTIMATED AVERAGE GLUCOSE 197.0 MG/DL (60-110)
[2025-07-14 14:32] LABS: PROSTATIC SPECIFIC AG MONITOR 0.07 NG/ML (< 4.00)
[2025-07-14 14:34] LABS: ALT/SGPT 31.0 U/L (7.0-40); AST/SGOT 23.0 U/L (<34); CALCIUM LEVEL 9.2 MG/DL (8.3-10.6); CARBON DIOXIDE LEVEL 29.0 MMOL/L (20-31); CHLORIDE LEVEL 106.0 MMOL/L (98-107); CREATININE FOR GFR 0.92 MG/DL (0.70-1.30); GLOMERULAR FILTRATION RATE 89.5 (>42); POTASSIUM SERUM 5.0 MMOL/L (3.5-5.1); SODIUM LEVEL 138.0 MMOL/L (136-145)
== END ==
LOC: M SFHCADAM 10:31
PROVIDERS: ATTEND Family Medicine
DX: C61 Malignant neoplasm of prostate (principal); E11.9 Type 2 diabetes mellitus without complications

== ENCOUNTER → 2025-07-28 | Outpatient (CLI) | payer MEDICARE | LOC: M RAD 11:17 | PROVIDERS: ATTEND Family Medicine | DX: R09.89 Other specified symptoms and signs involving the circulatory and respiratory systems (principal) ==

== ENCOUNTER → 2025-08-26 | Outpatient (CLI) | payer MEDICARE | LOC: M CARPUL 07:46 | PROVIDERS: ATTEND Family Medicine | DX: R09.89 Other specified symptoms and signs involving the circulatory and respiratory systems (principal) ==

== ENCOUNTER → 2025-09-29 | Outpatient (REF) | payer MEDICARE ==
[2025-09-29 13:39] LABS: CREATININE FOR GFR 0.91 MG/DL (0.70-1.30); GLOMERULAR FILTRATION RATE > 90.0 (>42)
== END ==
LOC: M LABDRWAD 13:01
PROVIDERS: ATTEND Physician Assistant
DX: I65.23 Occlusion and stenosis of bilateral carotid arteries (principal)

== ENCOUNTER → 2025-09-30 | Outpatient (CLI) | payer MEDICARE ==
[~2025-09-30] MED LIST changes: +ISOVUE-370 76% 100 ML VIAL As Ordered ONE
== END ==
LOC: M RAD 10:30
PROVIDERS: ATTEND Surgery Vascular Surgery
DX: I65.23 Occlusion and stenosis of bilateral carotid arteries (principal)
CPT/HCPCS: 70496; 70498; Q9967

== ENCOUNTER → 2025-10-01 | Outpatient (REF) | payer MEDICARE ==
[~2025-10-01] MED LIST changes: -ISOVUE-370 76% 100 ML VIAL As Ordered ONE
== END ==
LOC: M SFHCPLAZ 12:53
PROVIDERS: ATTEND Physician Assistant Medical
DX: J06.9 Acute upper respiratory infection, unspecified (principal)

== ENCOUNTER → 2025-10-16 | Outpatient (REF) | payer MEDICARE ==
[2025-10-16 14:00] LABS: ALT/SGPT 30 U/L (7.0-40); AST/SGOT 30 U/L (<34); CALCIUM LEVEL 9.2 MG/DL (8.3-10.6); CARBON DIOXIDE LEVEL 27 MMOL/L (20-31); CHLORIDE LEVEL 107 MMOL/L (98-107); CREATININE FOR GFR 0.91 MG/DL (0.70-1.30); GLOMERULAR FILTRATION RATE > 90.0 (>42); POTASSIUM SERUM 4.5 MMOL/L (3.5-5.1); SODIUM LEVEL 142 MMOL/L (136-145)
[2025-10-16 14:14] LABS: ESTIMATED AVERAGE GLUCOSE 192.0 MG/DL (60-110)
== END ==
LOC: M SFHCADAM 08:58
PROVIDERS: ATTEND Family Medicine
DX: E11.9 Type 2 diabetes mellitus without complications (principal)